=== PATIENT | male | born 1950 | race Caucasian/White ===

== ENCOUNTER → 2018-11-11 06:06 | Outpatient (CLI) | payer MEDICARE, OTHER, SELFPAY ==
--- NOTE | 2018-11-11 | US_ITS ---
US Arterial Ankle Brachial Ind History: Claudication, previous smoker ORDERING PHYSICIAN: Rey Lazo MD PATIENT AGE: 68 years TECHNIQUE: Segmental pressures obtained of both right and left leg. These are compared to brachial blood pressure to yield index at each level sampled including summary CHEVY. The data sheets from the procedure are available in PACS FINDINGS Rest study only performed today No prior studies available for comparison. Blood pressures reported are in millimeters mercury. RIGHT LEG CHEVY = 1.3. RIGHT LEG TBI=.9 Brachial BP: 142 Thigh BP: 155 Calf BP: 192 Ankle PT: 185 Ankle DP : 156 Digit =133 LEFT LEG CHEVY = 1.4 LEFT LEG TBI= .6 Brachial BPD: 147 Thigh BP: 148 Calf BP: 216 Ankle PT:208 Ankle DP: 160 Digit = 82 Pulses and waveforms: Normal IMPRESSION: The ABIs as reported are slightly elevated suggesting noncompliant/hardening of the arteries. The left TBI is slightly low suggesting small vessel disease. Normal pulses and waveforms
--- NOTE | 2018-11-11 06:12 | CA_ITS ---
PROCEDURE: 2-D M-mode and color Doppler study INDICATIONS FOR THE TEST: Chest pain X COPDX Heart Murmur Tobacco SmokingEX Palpitations Fatigue Syncope Edema Hypertension Diabetes Mellitus Rheumatic Fever SOB DOEXObesity Hyperlipidemia Family History HDX Additional History ABN EKG,TIA,JAW PAIN,BRADYCARDIA PATIENT INFORMATION HEIGHT: 68 WEIGHT:141 GENDER: Male B/P:130/74 2-D/M-MODE INTERPRETATION: 2-D MEASUREMENTS OBSERVED VALUES IN CMS Right Ventricular Dimension (RVDd) 2.3 Interventricular Septum (Thickness)(IVsd) .7 Left Ventricular Internal Dimensions(LVIDd) 5.7 Left Ventricular Posterior Wall (Thickness)(LVPWd) .8 Aortic Root 3.6 Aortic Cusp Separation 1.8 Left Atrial Dimensions (LAD) 2.9 2D 1. Left atrium is normal size, left ventricle is normal size, there is no concentric left ventricular hypertrophy, visually estimated ejection fraction of 55% with no regional wall motion abnormality. 2. The right atrium and right ventricle are mildly enlarged with normal contractility. 3. The aortic valve is minimally thickened and fibrosed. 4. The mitral and tricuspid valve leaflets are minimally thickened. 5. The pulmonic valve is poorly visualized. 6. No significant pericardial effusion noted. DOPPLER INTERROGATION: Doppler interrogation of the aortic, mitral and tricuspid valvular presence of mild mitral and moderate tricuspid regurgitation, calculated right ventricular systolic pressure 47 mmHg consistent with moderate pulmonary hypertension. Inferior vena cava is normal size with normal inspiratory collapse. CONCLUSION: 1.Normal left ventricular size, preserved left ventricular systolic function, visually estimated ejection fraction 55% with no regional wall motion abnormality. Diastolic parameters are within normal range. 2. Mildly enlarged right atrium and right ventricle, contractility of the right ventricle is normal. 3. Mild mitral and moderate tricuspid regurgitation, calculated right ventricular systolic pressure is 47 mmHg consistent moderate pulmonary hypertension. Inferior vena cava is normal size with normal inspiratory collapse. 4. No significant pericardial effusion noted.
--- NOTE | 2018-11-11 06:12 | CI_ITS ---
Cerebrovascular Exam Indications: 782.0 Numbness left arm 435.9 Unspecified transient cerebral ischemia. IMPRESSIONS 1. The bilateral vertebral arteries are patent with normal antegrade flow. 2. Study suggests less than 20% stenosis involving the right internal carotid artery. 3. Study suggests 20-49%stenosis involving the left internal carotid artery. Carotid duplex study. Complete study and Doppler flow study including spectral analysis, color and reyes scale imaging. Location: Vascular laboratory. Patient status: Outpatient. Tables: Arterial flow: + +--------+--------+ Location V sys V ed + +--------+--------+ Right CCA - proximal 102cm/s 34.6cm/s + +--------+--------+ Right CCA - distal 79.4cm/s 31.4cm/s + +--------+--------+ Right ECA 70.7cm/s -------- + +--------+--------+ Right ICA - proximal 72.3cm/s 28.3cm/s + +--------+--------+ Right ICA - mid 94.3cm/s 33cm/s + +--------+--------+ Right ICA - distal 112cm/s 45.6cm/s + +--------+--------+ Right vertebral 29.9cm/s -------- + +--------+--------+ Left CCA - proximal 87.2cm/s 29.1cm/s + +--------+--------+ Left CCA - distal 99cm/s 36.1cm/s + +--------+--------+ Left ECA 80.1cm/s -------- + +--------+--------+ Left ICA - proximal 92.7cm/s 25.1cm/s + +--------+--------+ Left ICA - mid 86.4cm/s 33.8cm/s + +--------+--------+ Left ICA - distal 86.9cm/s 38.2cm/s + +--------+--------+ Left vertebral 39.3cm/s -------- + +--------+--------+ Velocity ratios: + + + + + + Right, V sys Right, V ed Left, V sys Left, V ed + + + + + + Max ICA/dist CCA 1.41 1.45 0.94 1.06 + + + + + + (Report amended ) Electronically signed by: Ferny Cobos [id number]
--- NOTE | 2018-11-11 06:42 | NM_ITS ---
History and Indications: Chest pain, left arm pain, family history. Procedure: Patient exercised on Jordon protocol 10 minutes and 30 seconds, resting heart rate was 51 bpm resting blood pressure 159/85, the side maximum heart rate achieved was 1 46 bpm which is equal to 95% of the maximum predicted heart rate and a blood pressure was 200/94. Test was started shortness of breath and fatigue patient denied any complained of chest pain. Patient has good exercise capacity achieved 12.8mets of workload on treadmill, the blood pressure response to exercise was hypertensive. Electrocardiogram: Resting echocardiogram showed sinus bradycardia, with exercise there is [address] segment depression noted from the baseline EKG. The EKG portion of the exercise Myoview is positive for ischemia. Cardiac stress and resting SPECT images: Cardiac and resting SPECT images were obtained using technetium 99 Myoview 30.6 mCi stress and 10.1 mCi at stress. Gated SPECT further analysis of segmental wall motion and calculation of the ejection fraction also done. Cardiac stress and resting SPECT images show a fixed defect in the inferior wall with normal contractility gated SPECT is likely secondary to soft tissue attenuation, no reversible ischemia seen. Computer derived ejection fraction is 53% with no regional wall motion abnormality, right ventricle is normal size and contractility. Conclusion: 1. The EKG portion of the exercise Myoview is positive for ischemia, patient has good exercise capacity achieved 12.8mets of workload on treadmill, the blood pressure response to exercise was hypertensive, there was no exercise-induced chest discomfort. 2. No scintigraphic evidence of reversible ischemia seen at this level of exercise, computer derived ejection fraction is 53% with no regional wall motion abnormality. Right ventricle is normal size and contractility.
--- NOTE | 2018-11-11 09:38 | HMH.ITSHM ---
Current Home Medications as stated by this patient Iban [place] or pharmaceutical service representative. []asa
== END ==
PROVIDERS: PCP Family Medicine; Visit Provider Internal Medicine
DX: J44.9 Chronic obstructive pulmonary disease, unspecified (principal); R00.1 Bradycardia, unspecified; R07.9 Chest pain, unspecified; R68.84 Jaw pain; R94.31 Abnormal electrocardiogram [ECG] [EKG]; Z82.49 Family history of ischemic heart disease and other diseases of the circulatory system; Z87.891 Personal history of nicotine dependence; G45.9 Transient cerebral ischemic attack, unspecified; H53.8 Other visual disturbances; I73.9 Peripheral vascular disease, unspecified; R06.09 Other forms of dyspnea; R20.0 Anesthesia of skin
CPT/HCPCS: 78452; 93017; 93306; 93880; 93922; A9502

== ENCOUNTER 2021-05-27 22:52 | Emergency (ER) | payer MEDICARE, OTHER, SELFPAY ==
--- NOTE | 2021-05-27 23:06 | ECG_ITS ---
APPROVED REPORT Exam: Resting ECG HR:56 bpm ECG Measurements Heart Rate 56 AXES AR 210 P 69 QRSd 92 QRS 63 QT 438 T 71 QTc 422 Conclusion Sinus bradycardia with 1st degree AV block Otherwise normal ECG Electronically signed by : Navid Peoples MD 05/29/2021 11:47:29
[2021-05-27 23:08] VITALS: BP 124/70; PULSE 59; RESP 14; TEMP 36.6; O2SAT 97; BMI 24.3
--- NOTE | 2021-05-27 23:15 | CT_ITS ---
PROCEDURE INFORMATION: Exam: CT Head Without Contrast Exam date and time: 05/27/2021 11:15 PM Age: 70 years old Clinical indication: Dizziness TECHNIQUE: Imaging protocol: Computed tomography of the head without contrast. Radiation optimization: All CT scans at this facility use at least one of these dose optimization techniques: automated exposure control; mA and/or kV adjustment per patient size (includes targeted exams where dose is matched to clinical indication); or iterative reconstruction. COMPARISON: US CA carotid duplex BI 11/11/2018 10:02 AM FINDINGS: Brain: Mild generalized brain volume loss. Mild patchy periventricular and subcortical white matter low attenuation, probably related to chronic small vessel ischemia. No acute-appearing loss of reyes-white differentiation or CT evidence of large territorial acute ischemia. No intraparenchymal hematoma. No mass effect or midline shift. Extra-axial space: Unremarkable. No fluid collection or mass. Cerebral ventricles: Incidental cavum septum pellucidum and cavum vergae. Ventricles appear within expected limits for age and brain volume. No evidence of ventricular outflow obstruction. Paranasal sinuses: There is mild nonaggressive mucosal thickening throughout the ethmoid sinuses. Mastoid air cells: Visualized mastoid air cells are well aerated. Vasculature: Scattered cerebrovascular calcifications. Bones/joints: No depressed or calvarial fracture. Soft tissues: Unremarkable. IMPRESSION: No acute intracranial abnormality.
--- NOTE | 2021-05-27 23:15 | XR_ITS ---
PROCEDURE INFORMATION: Exam: XR Chest Exam date and time: 05/27/2021 11:15 PM Age: 70 years old Clinical indication: Shortness of breath; Additional info: SOA TECHNIQUE: Imaging protocol: XR of the chest. Views: 2 views. COMPARISON: No relevant prior studies available. FINDINGS: Lungs: Calcified granuloma at the right lung apex. Mild biapical scarring. No airspace consolidation. No pulmonary edema. Pleural spaces: No pleural effusion. No pneumothorax. Heart/Mediastinum: Normal heart size. Mild aortic atherosclerosis. Bones/joints: Osteopenia suggested. Age-indeterminate mild compression deformity of a midthoracic vertebral body (appears to be T8). Intraperitoneal space: Right upper quadrant surgical clips noted. IMPRESSION: 1. No acute abnormality of the lungs. 2. Normal heart size. 3. Age-indeterminate mild compression deformity of a midthoracic vertebral body, likely T8.
--- NOTE | 2021-05-27 23:17 | XR_ITS ---
PROCEDURE INFORMATION: Exam: XR Left Shoulder Exam date and time: 05/27/2021 11:17 PM Age: 70 years old Clinical indication: Pain; Shoulder; Left; Additional info: Shoulder pain TECHNIQUE: Imaging protocol: XR Left shoulder. Views: 2 or more views. COMPARISON: [facility] US Arterial Ankle Brachial Ind 11/11/2018 8:44 AM FINDINGS: Bones/joints: Moderate AC joint osteoarthrosis. Minimal degenerative spurring of the glenohumeral joint. No acute fracture. No dislocation. Soft tissues: Normal. IMPRESSION: 1. No acute finding. 2. Degenerative changes of the left shoulder.
[2021-05-27 23:23] LABS: Basophils # 0.1 K/mm3 (0-0.2); Basophils % 0.6 % (0.1-2.0); Eosinophils # 0.2 K/mm3 (0.0-0.4); Eosinophils % 2.4 % (0.1-12.0); Hematocrit 41.5 % (42.0-52.0); Hemoglobin 13.8 g/dL (14.1-18.0); Lymphocytes # 3.6 K/mm3 (0.7-4.5); Lymphocytes % 34.4 % (10-50); Mean Corpuscular HGB Conc 33.1 g/dL (31.8-35.4); Mean Corpuscular Hemoglobin 28.8 pg (27.0-31.2); Mean Corpuscular Volume 86.9 fl (80-94); Monocytes # 0.7 K/mm3 (0.1-1.0); Monocytes % 6.8 % (1.7-9.3); Neutrophils # 5.8 K/mm3 (1.8-7.8); Neutrophils % 55.8 % (37.0-80.0); Platelet Count 330 K/mm3 (142-424); Red Blood Count 4.78 M/mm3 (4.60-6.20); Red Cell Distribution Width 13.1 % (11.5-17.5); White Blood Count 10.3 K/mm3 (4.8-10.8)
[2021-05-27 23:31] VITALS: BP 145/93; PULSE 76; RESP 17; O2SAT 95
[2021-05-27 23:31] LABS: Alanine Aminotransferase 20 U/L (12-78); Albumin Level 4.1 g/dl (3.5-5.0); Albumin/Globulin Ratio 1.4 (1.1-1.8); Alkaline Phosphatase 79 U/L (38-126); Anion Gap 9.7 mEq/L (5-15); Aspartate Amino Transferase 33 U/L (17-59); Bilirubin,Total 0.7 mg/dl (0.2-1.3); Blood Urea Nitrogen 16 mg/dl (9-20); Carbon Dioxide 30 mmol/L (22.0-30.0); Chloride 101 mmol/L (98-107); Creatinine Clearance Estimated 73 mL/min (50-200); Estimated Glomerular Filt Rate 96 ml/min (>60); GFR (African American) 116 ML/MIN (>60); Glucose 128 mg/dl (74-100); Potassium 3.7 mmoL/L (3.5-5.1); Sodium 137 mmol/L (136-145); Total Protein,Serum 7.1 g/dl (6.3-8.2)
[2021-05-27 23:37] LABS: C-Reactive Protein 2.9 mg/L (0-4)
[2021-05-27 23:47] LABS: Troponin I 0.01 ng/ml (0.00-0.034)
[2021-05-27 23:49] LABS: Erythrocyte Sedimentation Rate 16 mm/hr (0-20)
[2021-05-27 23:51] LABS: T4 (Thyroxine) 9.5 ug/dl (5.53-11.0)
[2021-05-28 00:01] VITALS: BP 154/76; PULSE 59; RESP 20
[2021-05-28 00:04] LABS: Thyroid Stimulating Hormone 0.99 uIU/mL (0.465-4.68)
[2021-05-28 00:31] VITALS: BP 137/73; PULSE 62; RESP 19; O2SAT 93
--- NOTE | 2021-05-28 00:35 | HMH.EDDIZZ ---
ED Disposition Clinical Impression: Benign paroxysmal positional vertigo Qualifiers: Laterality: bilateral Qualified Code(s): H81.13 - Benign paroxysmal vertigo, bilateral Disposition: Home, Self-Care Condition on Discharge: Good Instructions: Dizziness, Nonvertigo Additional Instructions: fluids and see card in am Referrals: Kevin Johnson MD [Primary Care Provider] - - Critical Care Critical Care Time: No Attestation: On 05/27/21, the high probability of a clinically significant, sudden or life threatening deterioration of the following system(s) required my full and direct attention, intervention and personal management. The time I documented below is in addition to time spent performing reported procedures but includes the following listed in this critical care notation. Medical Decision Making - Medical Records Medical records reviewed: Yes: I reviewed the patient's medical records. - Julio Inquiry Pt receiving controlled substance: No Vital Signs: 05/27/21 23:08 Temperature 97.8 F Temperature Source Oral Pulse Rate [Right Brachial] 59 L Respiratory Rate 14 Blood Pressure [Right Arm] 124/70 Blood Pressure Mean [Right Arm] 88 Blood Pressure Source [Right Arm] Automatic Cuff Blood Pressure Position [Right Arm] Sitting 02 Sat by Pulse Oximetry 97 - Lab Data Lab results reviewed: Yes: I reviewed the patient's lab results. Lab Results 05/27/21 23:11: WBC 10.3, RBC 4.78, Hgb 13.8 L, Hct 41.5 L, MCV 86.9, MCH 28.8, MCHC 33.1, RDW 13.1, Plt Count 330, MPV 7.0 L, Neut % (Auto) 55.8, Lymph % (Auto) 34.4, [place] % (Auto) 6.8, Eos % (Auto) 2.4, Baso % (Auto) 0.6, Neut # (Auto) 5.8, Lymph # (Auto) 3.6, [place] # (Auto) 0.7, Eos # (Auto) 0.2, Baso # (Auto) 0.1 05/27/21 23:11: Sodium 137, Potassium 3.7, Chloride 101, Carbon Dioxide 30, Anion Gap 9.7, BUN 16, Creatinine 0.80, Estimated Creat Clear 73, Estimated GFR 96, Est GFR ( Amer) 116, Glucose 128 H, Calcium 9.0, Total Bilirubin 0.7, AST 33, ALT 20, Alkaline Phosphatase 79, Troponin I 0.01, C-Reactive Protein 2.9, Total Protein 7.1, Albumin 4.1, Globulin 3.0, Albumin/Globulin Ratio 1.4, TSH 0.99, Thyroxine (T4) 9.5 05/27/21 23:11: ESR 16 Result diagrams: 05/27/21 23:11 05/27/21 23:11 Orders (Tests/Meds): ED MEDICATIONS Discontinued Medications Generic Name Dose Route Start Last Admin Trade Name Louie PRN Reason Stop Dose Admin Aspirin 324 mg 05/27/21 23:18 05/28/21 00:19 Aspirin 81mg Chewable Tablet PO 05/27/21 23:19 324 mg ONCE ONE Administration Methylprednisolone Sodium Succinate 125 mg 05/27/21 23:18 05/28/21 00:20 Methylprednisolone Sod Succ 125mg Vial IV 05/27/21 23:19 125 mg ONCE ONE Administration ORDERS Category Date Time Status Troponin I Q3H Lab 05/28/21 02:30 Ordered Troponin I Q3H Lab 05/28/21 05:30 Ordered - Radiology Data #1 Image(s): Chest, Shoulder Image Reviewed: Yes I have reviewed radiologist's interpretation Preliminary Findings: No Fracture Seen - CT Data CT Scan: Head Time Received: 00:[address] Reviewed: Yes: I have viewed the radiologist's interpretation Preliminary Findings: Abnormal (nonspecific ) - ECG Data Tracing #1 Normal Sinus Rhythm: Yes Ischemic changes: non-specific ST-T wave changes - DIVYA Score for Non-Stemi Age of Patient: 60-69 years old Heart Rate: 50-69 bpm Systolic Blood Pressure: 120-139 mmhg Serum Creatinine: 0.80-1.19 mg/dl CHF Killip Class: I-No CHF Other Risk Factors: None Non-Stemi Risk Score: 102 Dizzy HPI - General Chief Complaint: Dizziness Stated Complaint: dizzy,problems with eyes.l shoulder pain Time Seen by Provider: 05/27/21 23:45 Mode of Arrival: Family Vehicle Source of Information: Patient, Medical Record Limitations: No Limitations Description of Symptoms (Recalled from ER Triage Doc. 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
[2021-05-28 00:48] VITALS: BP 146/71; PULSE 63; RESP 16; TEMP 36.6; O2SAT 97
== END 2021-05-28 00:50 | disposition home or self-care (01) ==
PROVIDERS: Emergency Provider Emergency Medicine; PCP Emergency Medicine
DX: H81.13 Benign paroxysmal vertigo, bilateral (principal); M25.512 Pain in left shoulder; Z87.891 Personal history of nicotine dependence; J44.9 Chronic obstructive pulmonary disease, unspecified
CPT/HCPCS: 70450; 71046; 73030; 80053; 84436; 84443; 84484; 85025; 85651; 86140; 93005; 96375; 99283; J2405

== ENCOUNTER → 2021-05-31 12:02 | Outpatient (CLI) | payer MEDICARE, OTHER, SELFPAY ==
[2021-05-31 12:24] LABS: Basophils # 0.1 K/mm3 (0-0.2); Basophils % 0.8 % (0.1-2.0); Eosinophils # 0.3 K/mm3 (0.0-0.4); Eosinophils % 2.9 % (0.1-12.0); Hematocrit 43.4 % (42.0-52.0); Hemoglobin 14.4 g/dL (14.1-18.0); Lymphocytes # 3.8 K/mm3 (0.7-4.5); Lymphocytes % 39.3 % (10-50); Mean Corpuscular HGB Conc 33.3 g/dL (31.8-35.4); Mean Corpuscular Hemoglobin 29.4 pg (27.0-31.2); Mean Corpuscular Volume 88.4 fl (80-94); Mean Platelet Volume 6.9 fl (7.4-10.4); Monocytes # 0.7 K/mm3 (0.1-1.0); Monocytes % 7.6 % (1.7-9.3); Neutrophils # 4.8 K/mm3 (1.8-7.8); Neutrophils % 49.4 % (37.0-80.0); Platelet Count 319 K/mm3 (142-424); Red Blood Count 4.91 M/mm3 (4.60-6.20); Red Cell Distribution Width 13.1 % (11.5-17.5); White Blood Count 9.7 K/mm3 (4.8-10.8)
[2021-05-31 12:45] LABS: Chloride 101 mmol/L (98-107); Potassium 4.2 mmoL/L (3.5-5.1); Sodium 138 mmol/L (136-145)
[2021-05-31 12:48] LABS: Alanine Aminotransferase 18 U/L (12-78); Albumin Level 3.9 g/dl (3.5-5.0); Alkaline Phosphatase 80 U/L (38-126); Anion Gap 12.2 mEq/L (5-15); Aspartate Amino Transferase 28 U/L (17-59); Bilirubin,Direct 0.4 mg/dl (0.0-0.4); Bilirubin,Total 0.4 mg/dl (0.2-1.3); Blood Urea Nitrogen 23 mg/dl (9-20); Calcium 9.3 mg/dl (8.4-10.2); Carbon Dioxide 29 mmol/L (22.0-30.0); Cholesterol 222 mg/dl (140-200); Estimated Glomerular Filt Rate 74 ml/min (>60); GFR (African American) 90 ML/MIN (>60); Glucose 101 mg/dl (74-100); Total Protein,Serum 6.7 g/dl (6.3-8.2); Triglycerides 160 mg/dl (30-150); VLDL Cholesterol 32 mg/dL (0-40)
[2021-05-31 12:49] LABS: Chol/HDL Ratio 4.2 (1-3.5); HDL Cholesterol 53 mg/dl (40-60)
[2021-05-31 12:59] LABS: Direct LDL Cholesterol 125.66 mg/dL (100-129)
[2021-05-31 13:05] LABS: Free T4 (Free Thyroxine) 1.36 ng/dl (0.78-2.19)
[2021-05-31 13:20] LABS: Thyroid Stimulating Hormone 0.99 uIU/mL (0.465-4.68)
[2021-05-31 20:17] LABS: Prostate Specific Ag Screen < 0.1 ng/ml (0.0-4.0)
== END ==
PROVIDERS: Visit Provider Urology
DX: R00.1 Bradycardia, unspecified (principal); Z12.5 Encounter for screening for malignant neoplasm of prostate; I65.29 Occlusion and stenosis of unspecified carotid artery; I10 Essential (primary) hypertension; R42 Dizziness and giddiness
CPT/HCPCS: 36415; 80048; 80061; 80076; 84439; 84443; 85025; G0103

== ENCOUNTER → 2021-06-05 09:21 | Outpatient (CLI) | payer MEDICARE, OTHER, SELFPAY ==
--- NOTE | 2021-06-05 09:26 | CA_ITS ---
APPROVED REPORT EXAM: Comprehensive 2D, Doppler, and color-flow Echocardiogram Income Tax Auditor: Haydee Puente RVT Ht: 5 ft 8 in Wt: 135lbs BSA: 1.73 BP: 128/81 mmHg Indications: CP,ABN EKG,BRADYCARDIA,COPD,EX SMOKER,HX TIA 2D Dimensions LVOT 2.26 cm (M/F) 1.5-2.5 LA Volume 25.90 mL LA Volume Index 14.97 mL/m2 (M/F) 16-34 M-Mode Dimensions RVDd 1.97 cm (0.9-2.6) LA Diam 3.50 cm (1.9-4.0) LVDd 4.29 cm (3.5-5.7) Ao Diam 3.16 cm (2.0-3.7) LVDs 3.15 cm (3.5-5.7) IVSd 0.82 cm (0.6-1.1) PWd 1.04 cm (0.6-1.1) EF (Teich) 52.30% FS 26.60% EDV (Teich) 82.60 mL TAPSE 2.25 (<1.7) ESV (Teich) 39.40 mL LV Diastology E Decel Time 153.00 (160-240 msec) E/A Ratio 1.4 MED E' 10.20 (< 7 cm/sec) E'/MED E' Ratio 6.39 (>14) LAT E' 10.80 (<10 cm/sec) E/LAT E' Ratio 6.04 (>14) Aortic Valve AO Peak GR. 4.40 mmHg Mitral Valve MV E Max Brown. 65.00 (40-130 cm/s) MV A Velocity 45.00 (40-130 cm/s) E/A Ratio 1.46 MV Decel. Time 153.00 (160-240 ms) MV PHT 45.00 ms Pulmonary Valve PV Peak Velocity 74.00 (50-150 cm/s) Tricuspid Valve TR P. Velocity 278.00 cm/s RAP Estimate 10.00 mmHg RVSP 40.90 mmHg Left Ventricle Left atrium is mildly enlarged, left ventricle is normal size, visually estimated ejection fraction 55% with no regional wall motion abnormality, diastolic parameters are inconclusive. Right Ventricle Right atrium and right ventricle mildly enlarged with normal contractility. Aortic Valve Aortic valve is minimally thickened and fibrosed, there is no aortic stenosis or aortic insufficiency. Mitral Valve Mitral valve is grossly normal, there is trace mitral regurgitation. Tricuspid Valve Tricuspid grossly normal, there is trace tricuspid regurgitation, calculated right ventricular systolic pressure is 41 mmHg. Pulmonic Valve Pulmonic valve is poorly visualized. Great Vessels Aortic root is normal size. Inferior vena cava is normal size with normal inspiratory collapse. Pericardium No significant pericardial effusion noted. Conclusion 1. Mild biatrial enlargement, normal left ventricular size, visually estimated ejection fraction 55% with no regional wall motion abnormality, diastolic parameters are inconclusive. 2. Mildly enlarged right ventricle with normal contractility. 3. Trace mitral and tricuspid regurgitation, calculated right ventricular systolic pressure is 41 mmHg. 4. No significant pericardial effusion noted. Electronically signed by : Chang Magaña MD 06/06/2021 15:39:38
--- NOTE | 2021-06-05 09:26 | CA_ITS ---
APPROVED REPORT [employer]anger: Haydee Puente RVT Laterality: Bilateral Study Quality: Good Indications: LY Risk Factors Hyperlipidemia Doppler Spectral Velocity Analysis ECA (R) 61.00/10.70 cm/s ECA (L) 68.40/16.00 cm/s dICA (R) 68.40/24.60 cm/s dICA (L) 87.70/32.10 cm/s Gabriella (R) 71.60/25.70 cm/s Gabriella (L) 72.70/26.70 cm/s pICA (R) 63.10/10.70 cm/s pICA (L) 44.90/11.80 cm/s dCCA (R) 88.80/23.50 cm/s dCCA (L) 82.30/24.60 cm/s pCCA (R) 105.90/25.70 cm/s pCCA (L) 98.40/27.80 cm/s Vert (R) 38.50/16.00 cm/s Vert (L) 34.20/12.80 cm/s ICA/CCA 0.81 ICA/CCA 1.06 Findings Study suggests 20-49% stenosis of the right internal cartoid artery. Study suggests 20-49% stenosis of the left internal cartoid artery. Antegrade flow seen bilateral vertebral arteries. Conclusion Study suggests 20-49% stenosis of the right internal cartoid artery. Study suggests 20-49% stenosis of the left internal cartoid artery. Antegrade flow seen bilateral vertebral arteries. Electronically signed by : Ferny Cobos MD 06/05/2021 16:59:22
== END ==
PROVIDERS: PCP Emergency Medicine; Visit Provider Urology
DX: R42 Dizziness and giddiness (principal); I07.1 Rheumatic tricuspid insufficiency
CPT/HCPCS: 93306; 93880

== ENCOUNTER → 2022-11-06 13:12 | Outpatient (CLI) | payer MEDICARE, OTHER, SELFPAY ==
--- NOTE | 2022-11-06 13:14 | CA_ITS ---
APPROVED REPORT EXAM: Comprehensive 2D, Doppler, and color-flow Echocardiogram Bag Filler: ZE Ramos, RVS Ht: 5 ft 8 in Wt: 135lbs BSA: 1.73 BP: 121/81 mmHg Indications: NEAR SYNCOPE W/ BRADYCARDIC EVENT,PHTN, DIZZINESS, ABN EKG 2D Dimensions LVDd 5.58 cm M: 4.2 - 5.9 LVEF (Visual) 45.50 % LVDs 4.30 cm M: 2.5 - 4.0 LA Volume 32.60 mL Aortic Root 3.16 cm M: 3.1 - 3.7 LA Volume Index 18.371417 mL/m2 (M/F) 16-34 Left Atrium 3.39 cm M: 3.0 - 4.0 LVOT 1.84 cm (M/F) 1.5-2.5 M-Mode Dimensions RVDd 2.10 cm (0.9-2.6) LA Diam 3.42 cm (1.9-4.0) LVDd 5.48 cm (3.5-5.7) Ao Diam 3.39 cm (2.0-3.7) LVDs 4.16 cm (3.5-5.7) IVSd 0.88 cm (0.6-1.1) PWd 0.81 cm (0.6-1.1) EF (Teich) 47.50% EPSs 0.38 cm FS 24.10% EDV (Teich) 146.20 mL TAPSE 1.88 (<1.7) ESV (Teich) 76.80 mL LV Diastology E Decel Time 270.00 (160-240 msec) E/A Ratio 1.14 MED E' 7.10 (< 7 cm/sec) MED A' 10.00 cm/s E'/MED E' Ratio 7.51 (>14) LAT E' 6.20 (<10 cm/sec) LAT A' 11.50 cm/s E/LAT E' Ratio 8.60 (>14) Aortic Valve LVOT Max 73.00 (70-110 cm/s) LVOT VTI 15.51 cm AoV Peak Brown. 110.00 (50-130 cm/s) AO Peak GR. 4.80 mmHg AO Mean GR. 2.40 (<5 mmHg) AO VTI 21.07 (18-25 cm) HANNY (VTI) 1.96 (2.5-4.5 cm2) Mitral Valve MV A Velocity 47.00 (40-130 cm/s) E/A Ratio 1.14 MV Decel. Time 270.00 (160-240 ms) MV PHT 60.00 ms Pulmonary Valve PV Peak Velocity 78.00 (50-150 cm/s) LA End VMAX 157.00 cm/s Tricuspid Valve TR P. Velocity 263.00 cm/s RAP Estimate 10.00 mmHg RVSP 37.80 mmHg Left Ventricle Left atrium is mildly enlarged, left ventricle is normal size mild concentric left ventricular hypertrophy, estimated ejection fraction 55% with no regional wall motion abnormality, grade 1 diastolic dysfunction seen without tissue Doppler evidence of raise left atrial pressure. Right Ventricle Right atrium and right ventricle are mildly enlarged with normal contractility. Aortic Valve Aortic valve is minimally thickened and fibrosed there is no aortic stenosis or aortic insufficiency. Mitral Valve Mitral valve is grossly normal, there is trace mitral regurgitation. Tricuspid Valve Tricuspid valve grossly normal, there is trace tricuspid regurgitation, calculated right ventricular systolic pressure is 38 mmHg. Pulmonic Valve Pulmonic valve is poorly visualized. Great Vessels Aortic root is normal size. Inferior vena cava is normal size with normal inspiratory collapse. Pericardium No significant pericardial effusion noted. Conclusion 1. Mild biatrial enlargement, normal left ventricular size, mild concentric left ventricular hypertrophy, estimated ejection fraction 55% with no regional wall motion abnormality, grade 1 diastolic dysfunction seen without tissue Doppler evidence of raise left atrial pressure. 2. Mildly enlarged right ventricle with normal contractility. 3. Trace mitral and tricuspid regurgitation, calculated right ventricular systolic pressure is 38 mmHg. 4. No significant pericardial effusion. 5. Inferior vena cava is normal size with normal inspiratory collapse. Electronically signed by : Chang Magaña MD 11/07/2022 15:22:33
== END ==
PROVIDERS: PCP Family Medicine; Visit Provider Internal Medicine
DX: I07.1 Rheumatic tricuspid insufficiency (principal); I27.20 Pulmonary hypertension, unspecified; R00.1 Bradycardia, unspecified; R06.02 Shortness of breath; R42 Dizziness and giddiness; R55 Syncope and collapse; R94.31 Abnormal electrocardiogram [ECG] [EKG]
CPT/HCPCS: 93306

== ENCOUNTER 2023-02-18 10:05 | Emergency (ER) | payer MEDICARE, OTHER, SELFPAY ==
[2023-02-18] VITALS (8 sets, daily range): BP systolic 125–170; BP diastolic 70–90; PULSE 57–77; RESP 17–20; TEMP 36.5–37.1; O2SAT 95–98; BMI 20.5
--- NOTE | 2023-02-18 10:11 | ECG_ITS ---
APPROVED REPORT Exam: Resting ECG HR:56 bpm ECG Measurements Heart Rate 56 AXES VA 188 P 88 QRSd 93 QRS 77 QT 421 T 80 QTc 412 Conclusion SINUS BRADYCARDIA WITH MARKED SINUS ARRHYTHMIA MINIMAL VOLTAGE CRITERIA FOR LVH, CONSIDER NORMAL VARIANT [MEETS CRITERIA IN ONE OF: R(aVL), S(V1), R(V5), R(V5/V6)+S(V1)] SEPTAL MYOCARDIAL INFARCTION , OF INDETERMINATE AGE [40+ ms Q WAVE IN V1/V2] ABNORMAL ECG UNCONFIRMED REPORT Electronically signed by : Navid Peoples MD 02/18/2023 21:15:47
--- NOTE | 2023-02-18 10:16 | PC.NURSE ---
Dr. Quinones at [facility] for pt eval
--- NOTE | 2023-02-18 10:18 | XR_ITS ---
FINAL REPORT CLINICAL HISTORY: soa COMPARISON: 05/27/2021 FINDINGS: No acute pulmonary opacity is present. There is no evidence of effusion or pneumothorax. Mediastinum is unremarkable. Heart size is normal. IMPRESSION: No acute abnormality. Reviewed, Interpreted and Dictated by Christopher Aquino MD Transcribed by Jamila Prince Authenticated and . [facility]
--- NOTE | 2023-02-18 10:18 | PC.NURSE ---
RT aware of breathing tx
[2023-02-18 10:26] LABS: Coronavirus 19, PCR Not Detected (NotDetected); Influenza A, PCR Not Detected (NotDetected); Influenza B, PCR Not Detected (NotDetected)
[2023-02-18 10:29] LABS: Basophils % 0.3 % (0.1-2.0); Eosinophils # 0.2 K/mm3 (0.0-0.4); Eosinophils % 1.8 % (0.1-12.0); Hematocrit 43.1 % (42.0-52.0); Hemoglobin 14.3 g/dL (14.1-18.0); Lymphocytes # 1.4 K/mm3 (0.7-4.5); Mean Corpuscular HGB Conc 33.2 g/dL (31.8-35.4); Mean Corpuscular Hemoglobin 28.8 pg (27.0-31.2); Mean Corpuscular Volume 86.7 fl (80-94); Mean Platelet Volume 7.2 fl (7.4-10.4); Monocytes # 0.8 K/mm3 (0.1-1.0); Monocytes % 7.7 % (1.7-9.3); Neutrophils # 7.6 K/mm3 (1.8-7.8); Neutrophils % 76.2 % (37.0-80.0); Platelet Count 313 K/mm3 (142-424); Red Blood Count 4.97 M/mm3 (4.60-6.20); Red Cell Distribution Width 13.1 % (11.5-17.5)
--- NOTE | 2023-02-18 10:35 | PC.NURSE ---
portable chest xray at [facility]
[2023-02-18 10:36] LABS: Alanine Aminotransferase 41 U/L (12-78); Albumin Level 4.2 g/dl (3.5-5.0); Albumin/Globulin Ratio 1.3 (1.1-1.8); Alkaline Phosphatase 108 U/L (38-126); Anion Gap 16.7 mEq/L (5-15); Aspartate Amino Transferase 47 U/L (17-59); Bilirubin,Total 0.5 mg/dl (0.2-1.3); Blood Urea Nitrogen 18 mg/dl (9-20); Calcium 9.1 mg/dl (8.4-10.2); Carbon Dioxide 29 mmol/L (22.0-30.0); Chloride 88 mmol/L (98-107); Creatinine Clearance Estimated 60 mL/min (50-200); Estimated Glomerular Filt Rate 83 ml/min (>60); GFR (African American) 101 ML/MIN (>60); Globulin 3.2 g/dL (1.3-3.2); Glucose 121 mg/dl (74-100); Potassium 3.7 mmoL/L (3.5-5.1); Sodium 130 mmol/L (136-145); Total Protein,Serum 7.4 g/dl (6.3-8.2)
--- NOTE | 2023-02-18 10:38 | HMH.EDGENADL ---
Discharge Plan Disposition Patient Disposition: Home, Self-Care Prescriptions Prescriptions: New amoxicillin-pot clavulanate [Augmentin] 500-125 mg tablet 1 tab PO Q8H Qty: 30 0RF methylprednisolone [Medrol] 4 mg tablet 4 mg PO DAILY Qty: 5 0RF ondansetron 4 mg tablet,disintegrating 4 mg PO Q8H PRN (Reason: Nausea) Qty: 15 0RF No Action omeprazole 40 mg capsule,delayed release(DR/EC) 40 mg PO DAILY aspirin [Adult Low Dose Aspirin] 81 mg tablet,delayed release (DR/EC) 81 mg PO DAILY hydrochlorothiazide 12.5 mg tablet See Rx Instructions .ROUTE .COMPLEX Qty: 90 3RF Dose Instruction: TAKE 1 TABLET BY MOUTH DAILY Rx Instructions: TAKE 1 TABLET BY MOUTH DAILY Referrals Follow up/Referrals: Kevin Jama [Primary Care Provider] - See instructions Activity Restrictions/Add. Instructions Additional Instructions/Restrictions: Follow-up with your primary care physician within the next few days. Return the emergency department for any other concerns within the next 8 hours Clinical Impressions Clinical Impression: Acute bronchitis Discharge ED Provider: Gabriele Quinones General Adult HPI General Chief complaint: Upper Respiratory Infection Stated complaint: Cough, dizzy, nausea, vomiting, weakness, fever Time Seen by Provider: 02/18/23 10:10 Mode of Arrival: Ambulatory Source of Information: Patient Limitations: No Limitations Description of Symptoms (Recalled from ER Triage Doc. by RN): pt to ed c/o body aches, dizziness and fever x1 week. pt states he seen his pcp and was given abx and steroids. pt c/o mild headache on arrival to ed. History of Present Illness HPI narrative: 72-year-old man history of COPD tricuspid regurg presents with cough fever for 1 week. He says he has been lightheaded and not eating or drinking as much as he has been. Has muscle aches and body aches as well. No known flu exposures or COVID exposures. He has been on antibiotics and steroids. Mild headache as well. He has mild shortness of breath no chest pain. Subjective fevers. Related Data Home Medications Medication Instructions Recorded Confirmed aspirin 81 mg tablet,delayed 81 mg PO DAILY 11/03/18 11/06/22 release (Adult Low Dose Aspirin) omeprazole 40 mg capsule,delayed 40 mg PO DAILY 05/31/21 11/06/22 release Previous Rx's Medication Instructions Recorded hydrochlorothiazide 12.5 mg tablet See Rx Instructions .Route 10/17/22 .COMPLEX #90 tabs amoxicillin 500 mg-potassium 1 tab PO Q8H #30 tabs 02/18/23 clavulanate 125 mg tablet (Augmentin) methylprednisolone 4 mg tablet 4 mg PO DAILY #5 tabs 02/18/23 (Medrol) ondansetron 4 mg disintegrating 4 mg PO Q8H PRN Nausea #15 tabs 02/18/23 tablet Allergies Allergy/AdvReac Type Severity Reaction Status Date / Time No Known Allergies Allergy Verified 11/06/22 11:25 [facility] Disclaimer: The information contained in this section may have been updated after the patient was seen, as this information can be updated by other users. Medical History (Updated 02/18/23 @ 11:52 by Gabriele Quinones MD) Abnormal electrocardiogram [ECG] [EKG] Bradycardia Carotid artery stenosis Dizziness Moderate tricuspid regurgitation Near syncope Pulmonary hypertension SOB (shortness of breath) Social History Smoking Status: Never smoker alcohol intake: never substance use type: denies use current occupational status: unemployed and disabled Travel in the last 8 weeks: Inside the [place] ROS Obtained: Yes All systems reviewed & no additional complaints except as documented Constitutional Constitutional: Reports fatigue, Reports fever(s) and Denies headache(s) Eyes Eyes: Denies dry eyes ENT Ears, Nose, Mouth, and Throat: Denies dry mouth and Denies headache(s) Cardiovascular Cardiovascular: Reports dyspnea Respiratory Respiratory: Reports dyspnea Gastrointes
--- NOTE | 2023-02-18 10:42 | PC.NURSE ---
pt ambulatory to restroom with assistance, no complications
--- NOTE | 2023-02-18 10:46 | PC.NURSE ---
UA sent to lab
[2023-02-18 10:50] LABS: Microscopic, Urine URINE MICROSCOPIC (MICROSCOPIC)
[2023-02-18 10:52] LABS: Appearance,Urine CLEAR (Clear); Blood, Urine 1+ (Negative); Color,Urine YELLOW (Yellow); Glucose,Urine (UA) Negative (Negative); Ketones,Urine 1+ (Negative); Leukocyte Esterase,Urine Negative (Negative); Nitrate,Urine Negative (Negative); PH,Urine 6.5 (5.0-8.5); Protein,Urine 2+ (Negative); Specific Gravity, Urine 1.025 (1.005-1.030)
[2023-02-18 10:57] LABS: Bilirubin,Urine 1+ (Negative)
[2023-02-18 11:12] LABS: Bacteria,Urine Trace /lpf; Mucus,Urine Trace /lpf; Squamous Epithelial Cell,Urine Occasional #/hpf (0-5); WBC,Urine Occasional #/hpf (0-3)
== END 2023-02-18 12:12 | disposition home or self-care (01) ==
PROVIDERS: Emergency Provider Emergency Medicine; PCP Family Medicine
DX: J20.9 Acute bronchitis, unspecified (principal); R11.2 Nausea with vomiting, unspecified; R42 Dizziness and giddiness
CPT/HCPCS: 71045; 80053; 81001; 85025; 93005; 96361; 96374; 96375; 99285; C9803; J2405; U0003; U0005